=== PATIENT | male | born 1985 | race Caucasian/White ===

== ENCOUNTER 2022-07-27 03:12 | Outpatient (CLI) | payer MEDICAID | END 2022-07-27 03:13 | disposition critical access hospital (66) | LOC: EMS 03:12 | DX: R56.9 Unspecified convulsions (principal) | CPT/HCPCS: A0425; A0427; A0999 ==

== ENCOUNTER 2022-07-27 03:33 | Emergency (ER) | payer MEDICAID ==
--- NOTE | 2022-07-27 03:33 | ED Physician Documentation ---
PD HPI SEIZURE - Stated complaint Stated Complaint: SZ - History obtained from History obtained from: Patient - History of Present Illness Witnessed: Witnessed Number of seizures: Multiple, Lasted minutes Description of seizure activity: Generalized, Tonic clonic Injury during seizure: None History of seizures: Prior EtOH wdrawal sz - Additional information Additional information: HPI from patient with additional information from EMS report. Patient is brought in by ambulance from [facility], A detox/rehab facility in [place]. He had just checked into this facility earlier today for help with detox and withdrawal from alcohol. Patient says he has a history of alcohol withdrawal seizures. His last drink of alcohol was approximately 8 PM. EMS noted fingerstick blood sugar of 121. EMS was called because patient had a generalized tonic-clonic seizure at the [facility] facility. He was going out to smoke with other staff who saw him stiffen up but were able to catch him and lowered him to ground so that he did not fall. By the time the medics arrived on scene, they note that there was no seizure activity but he was exhibiting postictal confusion. Initially, they noted he was improving and his mentation on route to the emergency department but then had another seizure in the ambulance, lasting approximately 45 seconds, generalized tonic-clonic. He was given 5 mg Versed intravenously. By the time he arrived to the emergency department, he is awake, alert, mildly confused.He has also received approximately 500 cc of normal saline intravenously on route by EMS Review of Systems Constitutional: denies: Fever, Chills, Sweats Cardiac: reports: Reviewed and negative Respiratory: reports: Reviewed and negative GI: reports: Reviewed and negative : denies: Incontinent Musculoskeletal: reports: Reviewed and negative Neurologic: reports: Seizure. denies: Generalized weakness, Focal weakness, Numbness, Headache, Head injury PD PAST MEDICAL HISTORY - Past Medical History Past Medical History: Yes - Present Medications Home Medications: Ambulatory Orders Medication Instructions Recorded Confirmed No Known Home Medications 07/27/22 07/27/22 - Allergies Allergies/Adverse Reactions: Allergies Allergy/AdvReac Type Severity Reaction Status Date / Time Penicillins Allergy Unknown Verified 07/27/22 03:37 - Social History Does the pt drink ETOH?: Yes Additional Social History: alcoholic PD ED PE NORMAL - Vitals Vital signs reviewed: Yes - General General: Alert and oriented X 3, No acute distress, Well developed/nourished, Other (hypervigilant) - HEENT HEENT: Atraumatic, PERRL, EOMI, Moist mucous membranes, Other (no tongue abrasion/laceration/echymosis) - Neck Neck: Supple, no meningeal sign, No bony TTP - Cardiac Cardiac: RRR, No murmur - Respiratory Respiratory: No respiratory distress, Clear bilaterally - Abdomen Abdomen: Soft, Non tender - Neuro Neuro: Alert and oriented X 3 Eye Opening: Spontaneous Motor: Obeys Commands Verbal: Oriented GCS Score: 15 PD ED PE EXPANDED - Psych Psych: Anxious Results - Vitals Vitals: Vital Signs - 24 hr 07/27/22 07/27/22 07/27/22 03:33 05:18 06:45 Temperature 37.0 C Heart Rate 99 73 Respiratory 18 15 13 Rate Blood Pressure 147/115 H 93/54 L 91/49 L O2 Saturation 98 96 99 If not protocol 2 2 : Oxygen Flow, liters/minute 07/27/22 07:10 Temperature Heart Rate 76 Respiratory 14 Rate Blood Pressure 107/66 O2 Saturation 94 If not protocol : Oxygen Flow, liters/minute Oxygen O2 Source Nasal cannula - Labs Labs: Laboratory Tests 07/27/22 07/27/22 07/27/22 04:02 04:02 04:06 WBC 8.7 RBC 5.10 Hgb 15.1 Hct 45.2 MCV 88.6 MCH 29.6 MCHC 33.4 RDW 12.6 Plt Count 204 MPV 10.8 Neut # (Auto) 4.7 Lymph # (Auto) 3.0 [place] # (Auto) 0.6 Eos # (Auto) 0.3 Baso # (Auto) 0.0 Absolute Nucleated RBC 0.00 Nucleated RBC % 0.0 Sodium 141 Potassium 4.2 Chloride 103 Carbon Dioxide 25 Anion Gap 13.0 BUN 9 Creatinine 0.8 Estimated GFR (MDRD) 109 Glucose 110 H Calcium 8.8 Total Bilirubin 0.6 AST 89 H ALT 105 H Alkaline Phosphatase 59 Total Protein 7.8 Albumin 4.3 Globulin 3.5 Albumin/Globulin Ratio 1.2 Lipase 26 Urine Color YELLOW Urine Clarity CLEAR Urine pH 6.5 Ur Specific [place] <=1.005 Urine Protein NEGATIVE Urine Glucose (UA) NEGATIVE Urine Ketones NEGATIVE Urine Occult Blood NEGATIVE Urine Nitrite NEGATIVE Urine Bilirubin NEGATIVE Urine Urobilinogen 0.2 (NORMAL) Ur Leukocyte Esterase NEGATIVE Ur Microscopic Review NOT INDICATED Urine Culture Comments NOT INDICATED Urine Opiates Screen NEGATIVE Ur Oxycodone Screen NEGATIVE Urine Methadone Screen NEGATIVE Ur Propoxyphene Screen NEGATIVE Ur Barbiturates Screen NEGATIVE Ur Tricyclics Screen NEGATIVE Ur Phencyclidine Scrn NEGATIVE Ur Amphetamine Screen NEGATIVE U Methamphetamines Scrn NEGATIVE U Benzodiazepines Scrn POSITIVE H Urine Cocaine Screen NEGATIVE U Cannabinoids Screen NEGATIVE Ethyl Alcohol 209.6 PD Medical Decision Making - ED course Complexity details: reviewed results, re-evaluated patient, considered differential, d/w patient ED course: Lauren is this patient's fourth emergency department visit to 4 different [facility] emergency rooms. These visits are over a 1 week period. Besides lauren's ER visit, he was in an ER in [facility] on the , and Kit at an [facility] on , and an [facility] in [facility] July 20. The results of his blood test in the emergency department are unremarkable with mild elevations in his transaminases his CBC is normal. His alcohol level is 0.206. Very early in his stay, patient was getting increasingly agitated although he would calm somewhat and was redirectable when I would talk with him explained to him that we would be giving him medications to prevent seizures and to help with the alcohol withdrawal. He is given 3 mg of lorazepam IV which greatly reduced his anxiety and agitation. Unfortunately, he gradually again became agitated, loudly yelling that he wanted food, very specifically that he wanted pizza immediately. He subsequently removed his IV and came out to the desk insisting that he was going to walk around and look for food in the emergency department. I was able to redirect him back into his room where explained to him that he is adequately awake, alert, and oriented to make his own decisions and that if he insists on leaving, he may do so but I would have to have him sign a form indicating that this is AGAINST MEDICAL ADVICE. I filled out the form and reviewed it with him, and he suddenly relented, realizing that there was no w here he would be able to go and no means of getting back to his detox/rehab facility. He acquiesced, agreeing to have a IV reinserted. He was given 3 mg IV lorazepam (for a total of 6 mg IV lorazepam during his ED stay). Subsequent to this second dose of lorazepam, he fell asleep and had stable vital signs for the remainder of his stay. He did not exhibit any seizure activity during his ED stay. I personally contacted the [facility] facility and they say they will send someone to pick him up and bring him back to the facility. Departure - Departure Disposition: 01 Home, Self Care Clinical Impression: Seizure Condition: Good Instructions: ED Seizure Alcohol Withdrawal Discharge Date/Time: 07/27/22 08:31
[2022-07-27] MEDS ORDERED: LORazepam 2 MG/ML VIAL IVP STA ×2 (03:40→04:01)
[2022-07-27] MEDS ORDERED: SODIUM CHLORIDE 0.9% 1,000 ML IV STA (03:40)
[2022-07-27] MEDS ORDERED: LORazepam 2 MG/ML VIAL ONE (03:42)
[2022-07-27 04:09] LABS: BASOPHILS % (AUTO) 0.5 %; EOSINOPHILS # (AUTO) 0.3 10^3/uL (0.0-0.7); EOSINOPHILS % (AUTO) 3.6 %; HCT - HEMATOCRIT 45.2 % (42.0-52.0); HGB - HEMOGLOBIN 15.1 g/dL (14.0-18.0); LYMPHOCYTES % (AUTO) 34.1 %; MEAN CORPUSCULAR HEMOGLOBIN 29.6 pg (27.0-31.0); MEAN CORPUSCULAR HGB CONC 33.4 g/dL (32.0-36.0); MEAN CORPUSCULAR VOLUME 88.6 fL (80.0-94.0); MEAN PLATELET VOLUME 10.8 fL (7.4-11.4); MONOCYTES # (AUTO) 0.6 10^3/uL (0.0-1.0); MONOCYTES % (AUTO) 7.4 %; NEUTROPHILS # (AUTO) 4.7 10^3/uL (1.5-6.6); NEUTROPHILS % (AUTO) 54.1 %; PLT - PLATELET COUNT 204 10^3/uL (130-450); RED CELL DISTRIBUTION WIDTH 12.6 % (12.0-15.0); WHITE BLOOD COUNT 8.7 x10^3/uL (4.8-10.8)
[2022-07-27 04:15] LABS: MUDS CUTOFF CONCENTRATIONS CUTOFF CONC BELOW:
[2022-07-27 04:19] LABS: BILIRUBIN,URINE NEGATIVE (NEGATIVE); CLARITY,URINE CLEAR (CLEAR); GLUCOSE, URINE (UA) NEGATIVE (NEGATIVE); KETONES,URINE (UA) NEGATIVE (NEGATIVE); LEUKOCYTE ESTERASE, URINE NEGATIVE (NEGATIVE); NITRITE,URINE NEGATIVE (NEGATIVE); OCCULT BLOOD,URINE NEGATIVE (NEGATIVE); PH,URINE 6.5 PH (5.0-7.5); PROTEIN,URINE NEGATIVE (NEGATIVE); UROBILINOGEN,URINE 0.2 (NORMAL) E.U./dL (NORMAL)
[2022-07-27 04:21] LABS: ALBUMIN 4.3 g/dL (3.2-5.5); ALBUMIN/GLOBULIN RATIO 1.2 (1.0-2.2); BILIRUBIN,TOTAL 0.6 mg/dL (0.2-1.0); CALCIUM 8.8 mg/dL (8.5-10.3); CREATININE 0.8 mg/dL (0.6-1.2); ETOH - ETHANOL 209.6 mg/dL; POTASSIUM 4.2 mmol/L (3.5-5.0); TOTAL PROTEIN 7.8 g/dL (6.7-8.2)
[2022-07-27 04:33] LABS: AMPHETAMINE SCREEN,URINE NEGATIVE (NEGATIVE); BENZODIAZEPINES SCREEN, URINE POSITIVE (NEGATIVE); COCAINE SCREEN URINE NEGATIVE (NEGATIVE); METHAMPHETAMINES SCREEN, URINE NEGATIVE (NEGATIVE); OPIATE SCREEN, URINE NEGATIVE (NEGATIVE); THC CANNABINOID SCREEN, URINE NEGATIVE (NEGATIVE)
[2022-07-27 04:34] LABS: BARBITURATE SCREEN,UR NEGATIVE (NEGATIVE); METHADONE SCREEN, URINE NEGATIVE (NEGATIVE); OXYCODONE SCREEN, URINE NEGATIVE (NEGATIVE); PROPOXYPHENE SCREEN, URINE NEGATIVE (NEGATIVE); TRICYCLIC ANTIDEPRESSANT,URINE NEGATIVE (NEGATIVE)
[2022-07-27] MEDS ORDERED: THIAMINE INJ 100 MG, MAGNESIUM SULFATE 2 GM, MULTIVITAMIN 10 ML, FOLIC ACID INJ 1 MG in... IV STA ×5 (06:55)
[2022-07-27 07:11] VITALS: BP 107/66
== END 2022-07-27 08:31 | disposition home or self-care (01) ==
LOC: ED 03:33
DX: R56.9 Unspecified convulsions (principal); Z53.29 Procedure and treatment not carried out because of patient's decision for other reasons
CPT/HCPCS: 36415; 80053; 80306; 80320; 81003; 83690; 85025; 96361; 96374; 99284; J2060; 81001; 87086